=== PATIENT | female | born 1990 | race Caucasian/White ===

== ENCOUNTER 2018-05-16 08:11 | Outpatient (CLI) | payer OTHER ==
[2018-05-16] MEDS ORDERED: IOHEXOL 50 ML IV ONE (08:34)
== END 2018-05-16 18:49 | disposition home or self-care (01) ==
LOC: SRD 08:11
PROVIDERS: ATTEND Obstetrics & Gynecology
DX: N97.9 Female infertility, unspecified (principal)
CPT/HCPCS: 74740; C1751; Q9967